=== PATIENT | female | born 1940 | race Caucasian/White ===

== ENCOUNTER 2018-01-23 21:49 | Emergency (ER) | payer OTHER ==
[~2018-01-23] VITALS: Ht 167.6 cm; Wt 135.5 kg
[~2018-01-23 21:49] MED LIST: ANTIVERT25 MG PO; AUGMENTIN875 MG PO; MEDROL DOSEPAK4 MG PO
[2018-01-23 22:28] LABS: HEMOGLOBIN 11.7 G/DL (11.9-15.5); MCH 28.7 PG (29.0-34.0); MCHC 32.5 G/DL (30.0-36.0); MCV 88.5 FL (83-99); PLATELET COUNT 348 K/uL (156-360); RBC DIS.WIDTH-SD 48.5 % (39-53); RED BLOOD COUNT 4.07 M/uL (3.80-5.20); WHITE BLOOD COUNT 14.5 K/uL (4.1-10.2)
[2018-01-23 22:38] LABS: ALBUMIN 3.9 g/dL (3.2-4.8); CHLORIDE 101 mEq/L (99-109); POTASSIUM 4.1 mEq/L (3.7-5.4); SODIUM 139 mEq/L (136-147)
[2018-01-23 22:40] LABS: GLUCOSE 134 mg/dL (70-99); TOTAL PROTEIN 7.8 g/dL (6.4-8.3)
[2018-01-23 22:42] LABS: TOTAL BILIRUBIN 0.6 mg/dL (0.0-1.0)
[2018-01-23 22:44] LABS: ALKALINE PHOSPHATASE 103 IU/L (3-129); CREATININE 1.1 mg/dL (0.6-1.3); GFR ESTIMATE (CALCULATED) 51 mL/min/
[2018-01-23 22:45] LABS: UREA NITROGEN (BUN) 22 mg/dL (9-23)
[2018-01-23 22:46] LABS: AST (GOT) 14 IU/L (2-34)
[2018-01-23 22:47] LABS: ALT (GPT) 13 IU/L (3-49)
[2018-01-23 22:51] LABS: TROP-I INTERPRETATION NEGATIVE; TROPONIN-I < 0.01 ng/mL (0.0-0.30)
[2018-01-24 01:50] LABS: APPEARANCE TURBID ((CLEAR)); BILIRUBIN NEGATIVE; BLOOD LARGE; COLOR AMBER ((YELLOW)); GLUCOSE (STRIP) NEGATIVE; KETONES NEGATIVE; LEUKOCYTES LARGE; NITRITE POSITIVE; PROTEIN (STRIP) 100; SPECIFIC GRAVITY 1.014 (1.000-1.030); UROBILINOGEN 0.2 MG/DL (0.2-1.0)
[2018-01-24] MEDS ORDERED: LEVAQUIN750 MG PO ×2 (02:09→20:01)
[2018-01-24 02:12] LABS: BACTERIA 2+ /HPF; EPITHELIAL CELLS RARE /HPF; MUCUS RARE /LPF; UCUL ADDED? YES; WHITE BLOOD CELLS TNTC /HPF (0-5)
[2018-01-24 02:13] LABS: AMORPHOUS URATES CRYSTALS 2+
[2018-01-24 02:56] VITALS: BP 111/53
[2018-01-24] MEDS ORDERED: NEXIUM40 MG PO (19:56)
[2018-01-24] MEDS ORDERED: HUMULIN N100 UNITS/ SC (19:56)
[2018-01-24] MEDS ORDERED: HUMALOG100 UNIT/2 SC ×3 (19:57)
[2018-01-24] MEDS ORDERED: CYANOCOBAL1000 MCG/2 IM (19:57)
[2018-01-24] MEDS ORDERED: MECLIZINE HCL25 MG PO (19:58)
[2018-01-24] MEDS ORDERED: TRULICITY1.5 MG/0.5 SC (19:58)
[2018-01-24] MEDS ORDERED: DIOVAN HCT 11 TABLET PO (19:58)
[2018-01-24] MEDS ORDERED: METFORMIN HCL500 M1 PO (19:58)
[2018-01-24] MEDS ORDERED: AMARYL4 MG PO (19:58)
[2018-01-24] MEDS ORDERED: IRON325 M1 PO (19:59)
[2018-01-24] MEDS ORDERED: JANUVIA100 MG PO (19:59)
[2018-01-24] MEDS ORDERED: RED YEAST RICE600 MG PO (19:59)
[2018-01-24] MEDS ORDERED: ASPIR 8181 M1 PO (19:59)
[2018-01-24] MEDS ORDERED: APRISO0.375 GM PO (19:59)
[2018-01-24] MEDS ORDERED: CRANBERRY 4001 EAC1 PO (19:59)
[2018-01-24] MEDS ORDERED: FOLIC ACID0.8 M1 PO (20:00)
[2018-01-24] MEDS ORDERED: DAILY VALUE1 EACH PO (20:00)
[2018-01-24] MEDS ORDERED: MOTRIN IB200 MG PO (20:00)
[2018-01-24] MEDS ORDERED: BIOTIN1000 MICRO PO (20:00)
[2018-01-24] MEDS ORDERED: B-COMPLEX-VITA1 EACH PO (20:00)
[2018-01-24] MEDS ORDERED: TYLENOL EXTRA500 MG PO (20:00)
[2018-01-24] MEDS ORDERED: LANTUS 3 M100 UNITS1 SC (20:02)
== END 2018-01-24 03:00 | disposition home or self-care (01) ==
LOC: EME → EDBD 21:49 → EME 01-24 03:00
PROVIDERS: Emergency Medicine Emergency Medical Services
DX: N10 Acute pyelonephritis (principal); B96.20 Unspecified Escherichia coli [E. coli] as the cause of diseases classified elsewhere; R53.1 Weakness; K59.00 Constipation, unspecified; R91.1 Solitary pulmonary nodule; E87.2 Acidosis; M47.896 Other spondylosis, lumbar region; E11.9 Type 2 diabetes mellitus without complications; I10 Essential (primary) hypertension; K21.9 Gastro-esophageal reflux disease without esophagitis; Z90.49 Acquired absence of other specified parts of digestive tract; Z88.5 Allergy status to narcotic agent
CPT/HCPCS: 71045; 72131; 74176; 80053; 81003; 82948; 83605; 83880; 84484; 85027; 87040; 87077; 87086; 87186; 93005; 99281; 99285

== ENCOUNTER 2018-01-24 15:43 | Inpatient (IN) | payer OTHER ==
[~2018-01-24] VITALS: Ht 167.6 cm; Wt 136.8 kg
[~2018-01-24 15:43] MED LIST changes: +LEVAQUIN750 MG PO
[2018-01-24 16:21] LABS: HEMATOCRIT 32.4 % (36.0-46.0); HEMOGLOBIN 10.6 G/DL (11.9-15.5); MCH 28.6 PG (29.0-34.0); MCHC 32.7 G/DL (30.0-36.0); MCV 87.3 FL (83-99); PLATELET COUNT 334 K/uL (156-360); RBC DIS.WIDTH-SD 48.2 % (39-53); RED BLOOD COUNT 3.71 M/uL (3.80-5.20); WHITE BLOOD COUNT 17.4 K/uL (4.1-10.2)
[2018-01-24 16:30] LABS: ALBUMIN 3.6 g/dL (3.2-4.8); CHLORIDE 99 mEq/L (99-109); POTASSIUM 4.4 mEq/L (3.7-5.4); SODIUM 136 mEq/L (136-147)
[2018-01-24 16:32] LABS: GLUCOSE 175 mg/dL (70-99); TOTAL PROTEIN 7.1 g/dL (6.4-8.3)
[2018-01-24 16:36] LABS: ALKALINE PHOSPHATASE 86 IU/L (3-129); CREATININE 1.5 mg/dL (0.6-1.3); GFR ESTIMATE (CALCULATED) 36 mL/min/
[2018-01-24 16:37] LABS: TOTAL BILIRUBIN 0.9 mg/dL (0.0-1.0); UREA NITROGEN (BUN) 28 mg/dL (9-23)
[2018-01-24 16:38] LABS: AST (GOT) 17 IU/L (2-34)
[2018-01-24 16:39] LABS: ALT (GPT) 12 IU/L (3-49)
[2018-01-24 18:09] LABS: INTER. NORMALIZED RATIO 1.4
[2018-01-24 18:28] LABS: TROP-I INTERPRETATION NEGATIVE; TROPONIN-I < 0.01 ng/mL (0.0-0.30)
[2018-01-24 18:37] LABS: APPEARANCE SL.HAZY ((CLEAR)); BILIRUBIN NEGATIVE; BLOOD SMALL; COLOR YELLOW ((YELLOW)); GLUCOSE (STRIP) NEGATIVE; KETONES 20; LEUKOCYTES MODERATE; NITRITE NEGATIVE; PROTEIN (STRIP) 30; SPECIFIC GRAVITY 1.015 (1.000-1.030); UROBILINOGEN 0.2 MG/DL (0.2-1.0)
[2018-01-24 18:49] LABS: BACTERIA RARE /HPF; EPITHELIAL CELLS RARE /HPF; MUCUS TRACE /LPF; UCUL ADDED? YES; WHITE BLOOD CELLS TNTC /HPF (0-5)
[2018-01-24] MEDS ORDERED: HUMULIN N100 UNITS/ SC (19:56)
[2018-01-24] MEDS ORDERED: NEXIUM40 MG PO (19:56)
[2018-01-24] MEDS ORDERED: HUMALOG100 UNIT/2 SC ×3 (19:57)
[2018-01-24] MEDS ORDERED: CYANOCOBAL1000 MCG/2 IM (19:57)
[2018-01-24] MEDS ORDERED: DIOVAN HCT 11 TABLET PO (19:58)
[2018-01-24] MEDS ORDERED: METFORMIN HCL500 M1 PO (19:58)
[2018-01-24] MEDS ORDERED: MECLIZINE HCL25 MG PO (19:58)
[2018-01-24] MEDS ORDERED: TRULICITY1.5 MG/0.5 SC (19:58)
[2018-01-24] MEDS ORDERED: AMARYL4 MG PO (19:58)
[2018-01-24] MEDS ORDERED: JANUVIA100 MG PO (19:59)
[2018-01-24] MEDS ORDERED: CRANBERRY 4001 EAC1 PO (19:59)
[2018-01-24] MEDS ORDERED: APRISO0.375 GM PO (19:59)
[2018-01-24] MEDS ORDERED: ASPIR 8181 M1 PO (19:59)
[2018-01-24] MEDS ORDERED: RED YEAST RICE600 MG PO (19:59)
[2018-01-24] MEDS ORDERED: IRON325 M1 PO (19:59)
[2018-01-24] MEDS ORDERED: B-COMPLEX-VITA1 EACH PO (20:00)
[2018-01-24] MEDS ORDERED: DAILY VALUE1 EACH PO (20:00)
[2018-01-24] MEDS ORDERED: MOTRIN IB200 MG PO (20:00)
[2018-01-24] MEDS ORDERED: BIOTIN1000 MICRO PO (20:00)
[2018-01-24] MEDS ORDERED: FOLIC ACID0.8 M1 PO (20:00)
[2018-01-24] MEDS ORDERED: TYLENOL EXTRA500 MG PO (20:00)
[2018-01-24] MEDS ORDERED: LEVAQUIN750 MG PO (20:01)
[2018-01-24] MEDS ORDERED: LANTUS 3 M100 UNITS1 SC (20:02)
[2018-01-24 22:00] VITALS: BP 120/63
[2018-01-25 00:22] VITALS: BP 120/63
[2018-01-25 03:33] VITALS: BP 117/57
[2018-01-25 05:49] LABS: HEMATOCRIT 30.1 % (36.0-46.0); HEMOGLOBIN 9.4 G/DL (11.9-15.5); MCH 27.6 PG (29.0-34.0); MCHC 31.2 G/DL (30.0-36.0); MCV 88.5 FL (83-99); PLATELET COUNT 339 K/uL (156-360); RBC DIS.WIDTH-CV 15.3 % (11.8-14.6); RBC DIS.WIDTH-SD 49.9 % (39-53); WHITE BLOOD COUNT 13.3 K/uL (4.1-10.2)
[2018-01-25 06:15] LABS: CHLORIDE 104 MEQ/L (99-109); CREATININE 1.1 MG/DL (0.6-1.3); GFR ESTIMATE (CALCULATED) 51 mL/min/; GLUCOSE 123 mg/dL (70-99); POTASSIUM 3.8 MEQ/L (3.7-5.4); SODIUM 139 MEQ/L (136-147); UREA NITROGEN (BUN) 18 mg/dL (9-23)
[2018-01-25 08:13] VITALS: BP 130/60
[2018-01-25 10:55] VITALS: BP 110/60
[2018-01-25 11:29] VITALS: BP 132/59
[2018-01-25 13:02] LABS: HEMOGLOBIN A1c (GLYCOHEMOGLOB) 7.3 % (Below 5.7)
[2018-01-25 20:16] VITALS: BP 119/55
[2018-01-26] VITALS (7 sets, daily range): BP systolic 110–128; BP diastolic 54–70
[2018-01-26 05:52] LABS: BASOPHIL (%) 0.2 % (0-1); EOSINOPHIL (%) 2.5 % (0-5); EOSINOPHIL COUNT 0.2 K/uL (0-0.3); HEMATOCRIT 29.9 % (36.0-46.0); HEMOGLOBIN 9.3 G/DL (11.9-15.5); IMMATURE GRANULOCYTE (%) 0.6 % (0.0-0.7); LYMPHOCYTE (%) 15.9 % (15-42); LYMPHOCYTE COUNT 1.3 K/uL (1.0-2.8); MCH 27.9 PG (29.0-34.0); MCHC 31.1 G/DL (30.0-36.0); MCV 89.8 FL (83-99); MONOCYTE (%) 8.6 % (3-12); MONOCYTE COUNT 0.7 K/uL (0-0.8); NEUTROPHIL (%) 72.2 % (45-76); PLATELET COUNT 292 K/uL (156-360); RBC DIS.WIDTH-CV 15.2 % (11.8-14.6); RBC DIS.WIDTH-SD 49.6 % (39-53); RED BLOOD COUNT 3.33 M/uL (3.80-5.20); WHITE BLOOD COUNT 8.3 K/uL (4.1-10.2)
[2018-01-26 06:08] LABS: CHLORIDE 107 MEQ/L (99-109); CREATININE 0.9 MG/DL (0.6-1.3); GFR ESTIMATE (CALCULATED) > 59 mL/min/; GLUCOSE 124 mg/dL (70-99); POTASSIUM 4.5 MEQ/L (3.7-5.4); SODIUM 138 MEQ/L (136-147); UREA NITROGEN (BUN) 15 mg/dL (9-23)
[2018-01-27] VITALS (7 sets, daily range): BP systolic 102–127; BP diastolic 56–64
[2018-01-27 06:34] LABS: BASOPHIL (%) 0.3 % (0-1); EOSINOPHIL (%) 1.5 % (0-5); EOSINOPHIL COUNT 0.2 K/uL (0-0.3); HEMATOCRIT 28.9 % (36.0-46.0); HEMOGLOBIN 9.1 G/DL (11.9-15.5); IMMATURE GRANULOCYTE (%) 0.6 % (0.0-0.7); LYMPHOCYTE (%) 14.3 % (15-42); LYMPHOCYTE COUNT 1.5 K/uL (1.0-2.8); MCH 27.7 PG (29.0-34.0); MCHC 31.5 G/DL (30.0-36.0); MCV 87.8 FL (83-99); MONOCYTE (%) 9.7 % (3-12); NEUTROPHIL (%) 73.6 % (45-76); NEUTROPHIL COUNT 7.6 K/uL (1.8-6.4); PLATELET COUNT 299 K/uL (156-360); RBC DIS.WIDTH-SD 48.8 % (39-53); RED BLOOD COUNT 3.29 M/uL (3.80-5.20); WHITE BLOOD COUNT 10.3 K/uL (4.1-10.2)
[2018-01-27 07:05] LABS: CHLORIDE 101 MEQ/L (99-109); CREATININE 0.9 MG/DL (0.6-1.3); GFR ESTIMATE (CALCULATED) > 59 mL/min/; POTASSIUM 4.1 MEQ/L (3.7-5.4); SODIUM 133 MEQ/L (136-147); UREA NITROGEN (BUN) 12 mg/dL (9-23)
[2018-01-27 07:06] LABS: GLUCOSE 189 mg/dL (70-99)
[2018-01-28 03:51] VITALS: BP 106/51
[2018-01-28 05:32] LABS: HEMATOCRIT 27.5 % (36.0-46.0); HEMOGLOBIN 8.9 G/DL (11.9-15.5); MCH 28.3 PG (29.0-34.0); MCHC 32.4 G/DL (30.0-36.0); MCV 87.3 FL (83-99); PLATELET COUNT 285 K/uL (156-360); RBC DIS.WIDTH-SD 47.9 % (39-53); RED BLOOD COUNT 3.15 M/uL (3.80-5.20); WHITE BLOOD COUNT 10.3 K/uL (4.1-10.2)
[2018-01-28 05:53] LABS: CHLORIDE 99 MEQ/L (99-109); GFR ESTIMATE (CALCULATED) 57 mL/min/; GLUCOSE 167 mg/dL (70-99); POTASSIUM 4.2 MEQ/L (3.7-5.4); SODIUM 130 MEQ/L (136-147); UREA NITROGEN (BUN) 18 mg/dL (9-23)
[2018-01-28] MEDS ORDERED: LYRICA50 MG PO (07:24)
[2018-01-28] MEDS ORDERED: ARTANE2 MG PO (07:24)
[2018-01-28] MEDS ORDERED: CEFDINIR300 MG PO (07:24)
[2018-01-28] MEDS ORDERED: PROBIOTIC1 EAC1 PO (08:18)
[2018-01-28] MEDS ORDERED: MILK OF MAGN PO (08:18)
[2018-01-28 08:27] VITALS: BP 110/59
== END 2018-01-28 10:55 | disposition home or self-care (01) | DRG 872 ==
LOC: EME 15:43 → 3EAST 19:48 → EDOF 19:48 → ENRESERV 19:51 → 3EAST 21:30
PROVIDERS: Family Medicine; Hospitalist; Internal Medicine; Physician Assistant Medical
DX: A41.9 Sepsis, unspecified organism (principal); N39.0 Urinary tract infection, site not specified; N17.9 Acute kidney failure, unspecified; R65.20 Severe sepsis without septic shock; E86.0 Dehydration; E87.1 Hypo-osmolality and hyponatremia; B96.20 Unspecified Escherichia coli [E. coli] as the cause of diseases classified elsewhere; G25.2 Other specified forms of tremor; I10 Essential (primary) hypertension; K21.9 Gastro-esophageal reflux disease without esophagitis; E11.9 Type 2 diabetes mellitus without complications; M19.90 Unspecified osteoarthritis, unspecified site; K59.00 Constipation, unspecified; D64.9 Anemia, unspecified; E66.01 Morbid (severe) obesity due to excess calories; Z68.42 Body mass index [BMI] 45.0-49.9, adult; Z79.4 Long term (current) use of insulin; Z90.49 Acquired absence of other specified parts of digestive tract; Z90.710 Acquired absence of both cervix and uterus
CPT/HCPCS: 70551; 71045; 72131; 74176; 80048; 80053; 81003; 82948; 83036; 83605; 83880; 84484; 85025; 85027; 85610; 87040; 87077; 87086; 87086 GA; 87186; 93005; 95819; 99281; 99284; 99285; J0692; J0696; J1650; J1815; J7030